=== PATIENT | female | born 1945 | race Two or more races ===

== ENCOUNTER → 2022-04-24 | Emergency (ER) | payer OTHER ==
[~2022-04-24] VITALS: Ht 152.4 cm; Wt 65.8 kg
== END | disposition left against medical advice (07) ==
LOC: ER 17:54
DX: B34.9 Viral infection, unspecified (principal); E11.9 Type 2 diabetes mellitus without complications; E78.00 Pure hypercholesterolemia, unspecified; I10 Essential (primary) hypertension